=== PATIENT | female | born 1965 | race Asian ===

== ENCOUNTER → 2021-01-04 | Outpatient (CLI) | payer OTHER ==
--- NOTE | 2021-01-04 17:22 | RAD ---
EXAM: Pelvic sonogram. HISTORY: Pain. TECHNIQUE: Transabdominal sonographic imaging of the pelvis was performed. COMPARISON: None. FINDINGS: The uterus is normal in size. The endometrial stripe measures 5.4 mm in thickness. The ovar ies are normal in size and demonstrate normal blood flow. No adnexal mass or cyst is seen. The urinar y bladder is unremarkable.. IMPRESSION: 1. Upper limits of normal endometrial thickness for the postmenopausal status of the patient. Better characterization characterization with transvaginal imaging can be performed if there is a history of postmenopausal bleeding/spotting or concern for endometrial pathology. 2. Unremarkable ovaries. Electronically signed by: Diane Champagne MD (01/04/2021 5:20 PM) [id number]
== END ==
LOC: US 15:55
PROVIDERS: ATTEND Nurse Practitioner Family
DX: R93.89 Abnormal findings on diagnostic imaging of other specified body structures (principal); R10.2 Pelvic and perineal pain
CPT/HCPCS: 76856

== ENCOUNTER 2021-01-23 01:04 | Emergency (ER) | payer OTHER ==
[~2021-01-23] VITALS: Ht 160 cm; Wt 54.0 kg
--- NOTE | 2021-01-23 01:57 | PHYS DOC ---
Past History Past Surgical History: No Surgical History Alcohol Use: None Adult General Chief Complaint Chief Complaint: Palpitations HPI HPI Patient is an otherwise healthy 55-year-old female who presents with a chief complaint of palpitations that happened about an hour or 2 before coming into the emergency department it lasted about 30 minutes. States she felt like her he art skipping beats. States she has had a few episodes of this before and they always go away as it did this time. Denies any actual chest pain, dyspnea on exertion, orthopnea, PND or edema. Denies any known cardiac history. Denies any history of VTE. Denies any recent travel, traumas, illnesses, fevers shortness of breath, chest pain, abdominal pain, nausea, vomiting, dysuria, hematuria, blood in stool or diarrhea. Denies any Covid/flu/cold symptoms. States that this episode resolved before coming to the ED and is asymptomatic here in the ED. Review of Systems Review of Systems Review of systems otherwise unremarkable except noted in HPI Allergies Allergies Allergies Coded Allergies Type Severity Reaction Last Updated Verified No Known Drug Allergies 01/23/21 No Physical Exam Physical Exam Constitutional: Well developed, well nourished, no acute distress, non-toxic appearance. [] HENT: Normocephalic, atraumatic, bilateral external ears normal, oropharynx mois t, no oral exudates, nose normal. [] Eyes: conjunctiva normal, no discharge. [] Neck: Normal range of motion, no tenderness, supple, no stridor. [] Cardiovascular:Heart rate regular rhythm, no murmur [] Lungs & Thorax: Bilateral breath sounds clear to auscultation [] Abdomen: Bowel sounds normal, soft, no tenderness, no masses, no pulsatile masses. [] Skin: Warm, dry, no erythema, no rash. [] Back: No tenderness, Extremities: No tenderness, no cyanosis, no clubbing, ROM intact, no edema. [] Neurologic: Alert and oriented X 3, normal motor function, normal sensory f unction, no focal deficits noted. [] Psychologic: Affect normal, judgement normal, mood normal. [] Current Patient Data Vital Signs Vital Signs Date Time Temp Pulse Resp B/P (MAP) Pulse Ox O2 Delivery O2 Flow Rate FiO2 01/23/21 01:29 98.1 86 16 120/76 (91) 98 Room Air EKG EKG [] Radiology/Procedures Radiology/Procedures [] Heart Score C/O Chest Pain: No Risk Factors: Risk Factors: DM, Current or recent (<one month) smoker, HTN, HLP, family histo ry of CAD, obesity. Risk Scores: Risk Factors: DM, Current or recent (<one month) smoker, HTN, HLP, family history of CAD, obesity. Course & Med Decision Making Course & Med Decision Making Patient is a 55-year-old female who presents with palpitations Vital signs not concerning. Physical exam noted above. EKG with no STEMI. Troponin normal. Chest x-ray not concerning. Low risk Wells. PERC negative. Patient asymptomatic with normal vitals. Discussed all findings with patient. Gave reassurance that at this time it did not look like there was anything acute going on but did not mean that there was not something going on that needed to be evaluated further. Advised to call primary care physician on Monday to discuss ED visit and set up a follow-up as soon as possible. Gave strict return precautions to the ED. Patient grateful, verbalized understanding and agreed with plan of discharge. [] Dragon Disclaimer Dragon Disclaimer This electronic medical record was generated, in whole or in part, using a voice recognition dictation system. Departure Departure: Impression: Primary Impression: Palpitations Disposition: HOME / SELF CARE / HOMELESS Condition: GOOD Referrals: PCP,UNKNOWN (PCP) ESTEBAN PADGETT Patient Instructions: Palpitations Additional Instructions: Thank you for coming into the emergency department tonight and allowing us to take care of you. Please read the attached information carefully to go back over some of the things we discussed. It is very important that you follow-up with y our primary care physician first thing on Monday to discuss your ED visit and set up a follow-up as soon as possible, because as we discussed although your work-up here was reassuring that does not mean that there could not be something going on that needs further evaluation. Please come back to the ED with new or concerning symptoms as we discussed JOHANNA MARTINEZ MD Jan 23, 2021 01:57
[2021-01-23 02:15] LABS: BASO % 1 % (0-3); EOS # 0.1 x10^3/uL (0.0-0.7); EOS % 4 % (0-3); HEMOGLOBIN 13.2 g/dL (12.0-15.5); LYMPH # 1.3 x10^3/uL (1.0-4.8); LYMPH % 35 % (24-48); MEAN CORPUSCULAR HEMOGLOBIN 32 pg (25-35); MEAN CORPUSCULAR HGB CONC 33 g/dL (31-37); MEAN CORPUSCULAR VOLUME 97 fL (79-100); MONO # 0.5 x10^3/uL (0.0-1.1); MONO % 14 % (0-9); NEUT # 1.8 x10^3uL (1.8-7.7); NEUT % 47 % (31-73); PLATELET COUNT 200 x10^3/uL (140-400); RED BLOOD COUNT 4.12 x10^6/uL (3.50-5.40); RED CELL DISTRIBUTION WIDTH 12.7 % (11.5-14.5); WHITE BLOOD COUNT 3.8 x10^3/uL (4.0-11.0)
[2021-01-23 02:20] LABS: CALCIUM 8.8 mg/dL (8.5-10.1); CREATININE 0.7 mg/dL (0.6-1.0); GFR 86.2; MAGNESIUM 2.3 mg/dL (1.8-2.4); POTASSIUM 3.4 mmol/L (3.5-5.1)
[2021-01-23 02:55] VITALS: BP 118/68
--- NOTE | 2021-01-23 03:09 | RAD ---
XR CHEST 1V Clinical Indication: Reason: palpitations Comparison: None. Findings: The cardiomediastinal silhouette is normal. Lungs are clear. There is no pneumothorax. No pleural eff usion is appreciated. No acute bone abnormality. IMPRESSION: No acute cardiopulmonary process. Electronically signed by: Julio Fisher MD (01/23/2021 3:07 AM) [facility]ITALAnamaria
--- NOTE | 2021-01-23 06:26 | EKG ---
[address] [address] Test Date: 2021-01-23 Test Time: 01:14:20 Pat Name: OMAR VALDEZ Department: Room: Gender: F Store Receiver: PHIL : [id number] Requested By: JOHANNA MARTINEZ Order Number: [id number] Reading MD: Kit Reese MD Measurements Intervals [place] Rate: 83 P: 59 MN: 160 QRS: 23 QRSD: 74 T: 51 QT: 392 QTc: 467 Interpretive Statements SINUS RHYTHM CONSIDER PRIOR INFERIOR INFARCT Electronically Signed On 01-24-2021 13:53:26 [employer]CH[employer] DESIGN ENGINE[employer] by Kit Reese MD
== END 2021-01-23 03:08 | disposition home or self-care (01) ==
LOC: ER 01:04
DX: R00.2 Palpitations (principal)
CPT/HCPCS: 36415; 71045; 80048; 83735; 84484; 85025; 93005; 99283; 99285